=== PATIENT | female | born 1940 | race Caucasian/White ===

== ENCOUNTER → 2018-03-23 | Outpatient (CLI) | payer MEDICARE ==
[2018-03-23 12:16] LABS: Basophils # (A) 0.1 k/uL (0-0.2); Basophils % (A) 1 %; Eosinophils # (A) 0.1 k/uL (0-0.7); Eosinophils % (A) 2 %; HCT 41.6 % (34.0-46.0); HGB 14.1 gm/dL (11.4-16.0); Lymphocytes # (A) 1.8 k/uL (1.0-4.8); Lymphocytes % (A) 29 %; MCH 32.2 pg (25.0-35.0); MCHC 33.8 g/dL (31.0-37.0); MCV 95.2 fL (80.0-100.0); Mean Platelet Volume 6.6; Monocytes # (A) 0.4 k/uL (0-1.0); Monocytes % (A) 6 %; Neutrophils # (A) 3.7 k/uL (1.3-7.7); Neutrophils % (A) 58 %; Platelet Count 240 k/uL (150-450); RBC 4.37 m/uL (3.80-5.40); RDW 13.4 % (11.5-15.5); WBC 6.5 k/uL (3.8-10.6)
== END | disposition home or self-care (01) ==
LOC: LABPAT 11:15
PROVIDERS: ATTEND Surgery
DX: Z01.818 Encounter for other preprocedural examination (principal); Z01.812 Encounter for preprocedural laboratory examination; K43.2 Incisional hernia without obstruction or gangrene; D64.9 Anemia, unspecified; F17.200 Nicotine dependence, unspecified, uncomplicated
CPT/HCPCS: 36415; 85025; 86850; 86900; 86901; 93005

== ENCOUNTER 2018-03-29 06:33 | Day surgery (SDC) | payer MEDICARE ==
[2018-03-22 09:59] VITALS: BMI 42.1
[~2018-03-29 06:33] MED LIST: DEXAMETHASONE SOD PHOSPHATE 10 MG/ML 1 ML VIAL IV ONE; HEPARIN SODIUM,PORCINE 5,000 UNIT/ML 1 ML VIAL SQ ONE; HYDROmorphone 0.5 MG/0.5 ML SYRINGE IVP PRN; LACTATED RINGERS 1,000 ML IV SCH; LIDOCAINE 1% 20 ML VIAL (10MG/ML) FOR IV START INTRADERMA PRN; MIDAZOLAM 2 MG/2 ML VIAL IV PRN; SCOPOLAMINE 1.5MG/72HR PATCH TRANSDERM ONE; ceFAZolin IN SWFI 2 GM/20 ML SYRINGE IVP ONE
[2018-03-29] MEDS: ONDANSETRON 4 MG/2 ML VIAL IVP ONE ×2 (07:15→11:00)
--- NOTE | 2018-03-29 07:53 | P.GSHP ---
History of Present Illness H&P Date: 03/29/18 Chief Complaint: Incisional hernia 's is a 77-year-old female who is developed an incisional hernia at her low midline scar. Patient is incisional hernia near the umbilicus. She presents today for laparoscopic robotic-assisted repair. Past Medical History Past Medical History: Fibromyalgia, GERD/Reflux, Hyperlipidemia, Hypertension, Myocardial Infarction ([place]), Osteoarthritis (OA) Additional Past Medical History / Comment(s): SOB with exertion, hx Congestive Heart Failure. Last Myocardial Infarction Date:: 11/2016 History of Any Multi-Drug Resistant Organisms: None Reported Past Surgical History: Appendectomy, Bowel Resection, Hysterectomy, Tonsillectomy Additional Past Surgical History / Comment(s): Bilateral Cataract surgery. Past Anesthesia/Blood Transfusion Reactions: No Reported Reaction Past Psychological History: Anxiety Smoking Status: Former smoker Past Alcohol Use History: None Reported Additional Past Alcohol Use History / Comment(s): Quit smoking 11/2016, smoked on and off since 16 yrs old. Past Drug Use History: None Reported - Past Family History Mother Family Medical History: Cancer Additional Family Medical History / Comment(s): Breast and colon cancer Medications and Allergies Home Medications Medication Instructions Recorded Confirmed Type ALPRAZolam [Xanax] 0.5 mg PO BID 03/22/18 03/29/18 History Acetaminophen [Tylenol Arthritis] 650 mg PO Q4H PRN 03/22/18 03/29/18 History Allopurinol [Zyloprim] 100 mg PO DAILY 03/22/18 03/29/18 History Esomeprazole Magnesium [NexIUM] 20 mg PO DAILY 03/22/18 03/29/18 History Hydrochlorothiazide 25 mg PO QAM 03/22/18 03/29/18 History Losartan [Cozaar] 50 mg PO QAM 03/22/18 03/29/18 History Lovastatin [Mevacor] 20 mg PO HS 03/22/18 03/29/18 History Magnesium 400 mg PO DAILY 03/22/18 03/29/18 History Montelukast [Singulair] 10 mg PO HS 03/22/18 03/29/18 History Rescue Inhaler 1 - 2 puff INHALATION DIRECTED 03/22/18 03/29/18 History PRN Tramadol 1 tab PO Q6H PRN 03/22/18 03/29/18 History amLODIPine [Norvasc] 5 mg PO QAM 03/22/18 03/29/18 History Allergies Allergy/AdvReac Type Severity Reaction Status Date / Time Sulfa (Sulfonamide Allergy Rash/Hives Verified 03/29/18 06:55 Antibiotics) aspirin AdvReac upset Verified 03/29/18 06:55 stomach/acid reflux Surgical - Exam Vital Signs Temp Pulse Resp BP Pulse Ox 97 F L 77 16 183/93 96 03/29/18 07:00 03/29/18 07:00 03/29/18 07:00 03/29/18 07:00 03/29/18 07:00 - General well developed, no distress - Eyes PERRL - ENT normal pinna - Neck no masses - Respiratory normal expansion - Cardiovascular Rhythm: regular - Abdomen Incisional hernia 8 cm at the superior portion of her low midline scar Abdomen: soft, non tender Assessment and Plan Assessment: Incisional hernia. We'll perform laparoscopic robotic-assisted repair.
[2018-03-29] MEDS ORDERED: GLYCOPYRROLATE 0.2 MG/ML 2 ML VIAL ONE (07:59)
[2018-03-29] MEDS ORDERED: ROCURONIUM BROMIDE 10 MG/ML 10 ML VIAL IV ONE (07:59)
[2018-03-29] MEDS ORDERED: fentaNYL (PF) 50 MCG/ML 2 ML AMP ONE (07:59)
[2018-03-29] MEDS ORDERED: LIDOCAINE 1% INJ 10MG/ML (20 ML MDV) ONE (07:59)
[2018-03-29] MEDS ORDERED: PROPOFOL 10 MG/ML 20 ML VIAL IV ONE (07:59)
[2018-03-29] MEDS ORDERED: KETOROLAC 30 MG/ML 1 ML VIAL ONE (07:59)
[2018-03-29] MEDS ORDERED: SUCCINYLCHOLINE CHLORIDE 100 MG/5 ML SYR IV ONE (07:59)
[2018-03-29] MEDS ORDERED: NEOSTIGMINE 1 MG/ML 10 ML VIAL ONE ×2 (07:59)
[2018-03-29] MEDS ORDERED: HYDROmorphone (PF) 1 MG/ML ONE (07:59)
[2018-03-29] MEDS ORDERED: MIDAZOLAM 2 MG/2 ML VIAL ONE (07:59)
[2018-03-29] MEDS ORDERED: BUPIVACAIN-EPI 0.5%-1:200,000 30 ML VIAL SQ ONE ×2 (08:32)
[2018-03-29] MEDS ORDERED: LACTATED RINGERS 1,000 ML IV ONE (09:10)
--- NOTE | 2018-03-29 09:38 | P.ONQ ---
Anesthesiology Proc Note - PNB - Peripheral Nerve Block Performed Bilateral Rectus Abdominis Single Time Out Performed: Yes Procedure Start Time: 07:43 Procedure Stop Time: :53 Indication: Acute Post-Operative Pain, Requested by physician Sedation Type: Sedate with meaningful contact maintained Preparation: Sterile Prep Position: Supine Needle Size: 50mm (2") Needle Gauge: 21 Technique: Ultrasound Injectate: 0.5% Ropivacaine (see comment for volume) (ropi .5% 30cc) Blood Aspirated: No Pain Paresthesia on Injection Noted: No Resistance on Injection: Normal Events: Uneventful and Well Tolerated
--- NOTE | 2018-03-29 09:49 | P.OP ---
Date of Procedure: 03/29/18 Preoperative Diagnosis: Laparoscopic robotic-assisted repair of incisional hernia Postoperative Diagnosis: Incisional hernia Adhesions Procedure(s) Performed: Laparoscopic robotic repair of incisional hernia Laparoscopic lysis of adhesions Anesthesia: ROMÁN Surgeon: Kem Cruz Estimated Blood Loss (ml): 5 Pathology: none sent Condition: stable Disposition: PACU Description of Procedure: The patient was placed on the operating table in the supine position. He received general anesthesia. His abdomen was prepped and draped usual fashion. Using a 5 mm optical trocar under direct visualization the peritoneal cavity was entered in the left upper quadrant. The abdomen was then insufflated. The laparoscope was placed back into the perineal cavity. Next a 8 mm robotic trocar was placed in the left lower quadrant and a 12 mm robotic trocar was placed in the left lateral position. The original 5 mm trocar was exchanged for a 8 mm robotic trocar. The patient's placed in the left side up position. And the patient was docked to the robot. There were adhesions located over the low midline incision. Using electrocautery these were taken down. The The incisional hernia was visualized. Using hook cautery the peritoneum over the incisional hernia was excised. The fascial opening was repaired using 0V LOC suture. Next a piece of 11 cm round ventral light ST mesh was placed into the. Cavity and secured with 2 OV lock suture. The patient was undocked the robot. The needles were retrieved. The fascia of the 12 mm trocar site was closed with 0 Ethibond suture. Skin was closed interrupted 3-0 Monocryl suture. Dermabond dressings was applied. Patient tolerated procedure well and was sent to recovery room stable condition.
[2018-03-29 09:58] VITALS: TEMP 97.8
[2018-03-29] MEDS ORDERED: ENALAPRILAT 1.25 MG/ML 1 ML VIAL IVP ONE (10:14)
[2018-03-29] MEDS ORDERED: HYDROcodone/APAP 7.5-325MG 1 EACH TAB PO ONE (13:40)
[2018-03-29] MEDS ORDERED: METOCLOPRAMIDE 5 MG/ML 2 ML VIAL IVP ONE (13:40)
[2018-03-29 14:56] VITALS: BP 131/61; PULSE 57; RESP 18
== END 2018-03-29 15:31 | disposition home or self-care (01) ==
LOC: OR 06:33
PROVIDERS: ATTEND Surgery
DX: K43.2 Incisional hernia without obstruction or gangrene (principal); K66.0 Peritoneal adhesions (postprocedural) (postinfection); M79.7 Fibromyalgia; K21.9 Gastro-esophageal reflux disease without esophagitis; E78.5 Hyperlipidemia, unspecified; I25.2 Old myocardial infarction; M19.90 Unspecified osteoarthritis, unspecified site; I11.0 Hypertensive heart disease with heart failure; I50.9 Heart failure, unspecified; F41.9 Anxiety disorder, unspecified; J45.909 Unspecified asthma, uncomplicated; M10.9 Gout, unspecified; E66.9 Obesity, unspecified; Z68.41 Body mass index [BMI] 40.0-44.9, adult; Z90.49 Acquired absence of other specified parts of digestive tract; Z90.710 Acquired absence of both cervix and uterus; Z79.899 Other long term (current) drug therapy; Z88.2 Allergy status to sulfonamides; Z88.6 Allergy status to analgesic agent; Z87.891 Personal history of nicotine dependence
CPT/HCPCS: 49654; 64488; C1781; J2250; J1644; J1100; J2710; J2765; J2405; J2001; J3010; J1885; J1170 ×2; J0330; J2704; J0690; 86850; 86900; 86901

== ENCOUNTER 2020-07-31 09:11 | Day surgery (SDC) | payer MEDICARE ==
[2020-07-31 10:40] VITALS: RESP 18; TEMP 97.7
[2020-07-31 11:29] VITALS: BP 159/88; PULSE 65
--- NOTE | 2020-07-31 16:47 | US ---
EXAMINATION TYPE: US FNA thyroid first lesion DATE OF EXAM: 07/31/2020 COMPARISON: NONE HISTORY: Thyroid nodules .Maximal barrier technique was utilized. After informed consent, skin overlying the site of thyroid nodule at the lower pole was localized with ultrasound and the overlying skin prepped and draped. Ult rasound was utilized using sterile technique. Lidocaine was used for local anesthesia. Five passes w ith a 25-gauge needle were made into the nodule and aspirated specimen was submitted to cytology. Using similar technique the dominant nodule in the right lobe of the gland was sampled with 5 passes with a 25-gauge needle under ultrasound guidance. Following the procedure hemostasis achieved. No immediate complication. The patient discharged in s table condition. IMPRESSION: STATUS POST ULTRASOUND GUIDED FINE NEEDLE ASPIRATION OF THYROID NODULES bilaterally, PATH OLOGY IS PENDING. THIS PROCEDURE WAS PERFORMED BY THE UNDERSIGNED.
== END 2020-07-31 11:20 | disposition home or self-care (01) ==
LOC: RADPROMAIN 09:11
PROVIDERS: ATTEND Nurse Practitioner Adult Health
DX: E04.9 Nontoxic goiter, unspecified (principal); E04.1 Nontoxic single thyroid nodule
CPT/HCPCS: 10005; 10006; 88173; 88305

== ENCOUNTER 2020-09-11 18:29 | Observation (INO) | payer MEDICARE ==
--- NOTE | 2020-09-11 19:00 | ED ---
General Adult HPI - General Chief complaint: Shortness of Breath Stated complaint: Chest Pain Time Seen by Provider: 09/11/20 18:43 Source: patient Mode of arrival: EMS Limitations: no limitations - History of Present Illness Initial comments: Dictation was produced using [employer] dictation software. please excuse any grammatical, word or spelling errors. This patient was cared for during a federal and state declared state of emergency secondary to Covid 19 Chief Complaint: 80-year-old female with alleged past medical history of heart failure, fiber large, hypertension presents to emergency department for NSTEMI. History of Present Illness: She is 80-year-old female she has past medical history of cardiac disease. Patient was initially evaluated at [place] for shortness of breath. She states that her symptoms have been ongoing for a couple days. She was seen there and was evaluated found have elevated troponin of 0.04. She had a negative d-dimer. Patient states she feels well at the moment. She states she feels kind of fatigued because she did not sleep last night. She does not have any chest pain. She is not short of breath currently. He did have some mild chest pain recently although it went away on its own. Patient states she has a history of heart failure. The ROS documented in this emergency department record has been reviewed and confirmed by me. Those systems with pertinent positive or negative responses have been documented in the HPI. All other systems are other negative and/or noncontributory. PHYSICAL EXAM: General Impression: Alert and oriented x3, not in acute distress HEENT: Normocephalic atraumatic, extra-ocular movements intact, pupils equal and reactive to light bilaterally, mucous membranes moist. Cardiovascular: Heart regular rate and rhythm Chest: Able to complete full sentences, no retractions, no tachypnea Abdomen: abdomen soft, non-tender, non-distended, no organomegaly Musculoskeletal: Pulses present and equal in all extremities, no peripheral edema Motor: no focal deficits noted Neurological: CN II-XII grossly intact, no focal motor or sensory deficits noted Skin: Intact with no visualized rashes Psych: Normal affect and mood ED course: 80-year-old well-appearing female with past medical history of cardiac disease presents to emergency department via transfer from [place] for elevated troponin. Vital signs upon arrival are within acceptable limits. Patient be admitted to observation. Repeat troponin is negative. Patient will be admitted to [facility] prescription. - Related Data Home Medications Medication Instructions Recorded Confirmed ALPRAZolam [Xanax] 0.5 mg PO BID 03/22/18 09/11/20 Acetaminophen [Tylenol Arthritis] 650 mg PO Q4H PRN 03/22/18 09/11/20 Esomeprazole Magnesium [NexIUM] 20 mg PO DAILY 03/22/18 09/11/20 Lovastatin [Mevacor] 20 mg PO HS 03/22/18 09/11/20 Montelukast [Singulair] 10 mg PO HS 03/22/18 09/11/20 allopurinoL [Zyloprim] 100 mg PO DAILY 03/22/18 09/11/20 amLODIPine [Norvasc] 5 mg PO QAM 03/22/18 09/11/20 hydroCHLOROthiazide 25 mg PO QAM 03/22/18 09/11/20 Escitalopram Oxalate [Lexapro] 20 mg PO DAILY 07/21/20 09/11/20 Albuterol Sulfate [Ventolin HFA] 2 puff INHALATION RT-Q6H PRN 09/11/20 09/11/20 Losartan Potassium [Cozaar] 50 mg PO DAILY 09/11/20 09/11/20 traMADol HCL 50 mg PO BID PRN 09/11/20 09/11/20 Allergies Allergy/AdvReac Type Severity Reaction Status Date / Time Sulfa (Sulfonamide Allergy Rash/Hives, Verified 09/11/20 20:10 Antibiotics) ITCHING aspirin AdvReac upset Verified 09/11/20 20:10 stomach/acid reflux Review of Systems ROS Statement: Those systems with pertinent positive or pertinent negative responses have been documented in the HPI. ROS Other: All systems not noted in ROS Statement are negative. Past Medical History Past Medical History: Fibromyalgia, GERD/Reflux, Hyperlipidemia, Hypertension, Myocardial Infarction ([place]), Osteoarthritis (OA) Additional Past Medical History / Comment(s): SOB with exertion, hx Congestive Heart Failure. Last Myocardial Infarction Date:: 11/2016 History of Any Multi-Drug Resistant Organisms: None Reported Past Surgical History: Appendectomy, Bowel Resection, Hysterectomy, Tonsillectomy Additional Past Surgical History / Comment(s): Bilateral Cataract surgery. Past Anesthesia/Blood Transfusion Reactions: No Reported Reaction Past Psychological History: Anxiety Smoking Status: Unknown if ever smoked Past Alcohol Use History: None Reported Past Drug Use History: None Reported - Past Family History Mother Family Medical History: Cancer Additional Family Medical History / Comment(s): Breast and colon cancer General Exam Limitations: no limitations Course Vital Signs 09/11/20 18:43 Pulse Rate 68 Respiratory 20 Rate Blood Pressure 173/79 O2 Sat by Pulse 99 Oximetry Medical Decision Making - Lab Data Lab Results 09/11/20 Range/Units 19:20 Troponin I <0.012 (0.000-0.034) ng/mL Disposition Clinical Impression: NSTEMI (non-ST elevated myocardial infarction) Disposition: ADMITTED IP TO THIS HOSP Condition: Fair Referrals: Nonstaff,Physician [Primary Care Provider] - 1-2 days Decision Time: 20:18
[2020-09-11] MEDS ORDERED: NITROGLYCERIN SL TABS 0.4 MG TAB SUBLINGUAL PRN (20:16)
[2020-09-11] MEDS ORDERED: HEPARIN SOD,PORK IN 0.45% NACL 25,000 UNIT in 0.45% NACL 1 250ML.BAG IV SCH (20:30)
[2020-09-11] MEDS ORDERED: ACETAMINOPHEN TAB 325 MG TAB PO PRN (22:21)
[2020-09-11] MEDS ORDERED: traMADol 50 MG TAB PO PRN (22:21)
[2020-09-11] MEDS: ATORVASTATIN 10 MG TAB PO SCH (22:36)
[2020-09-11] MEDS: ESCITALOPRAM 20 MG TAB PO SCH (22:36)
[2020-09-11] MEDS: PANTOPRAZOLE 40 MG TABLET PO SCH (22:36)
[2020-09-11] MEDS: ALPRAZolam 0.5 MG TAB PO SCH (22:36)
[2020-09-12] MEDS: ALBUTEROL HFA INHALER INHALATION PRN ×2 (07:51→12:25)
[2020-09-12] MEDS: allopurinoL 100 MG TAB PO SCH (08:20)
[2020-09-12] MEDS: ALPRAZolam 0.5 MG TAB PO SCH ×2 (08:22→20:37)
[2020-09-12] MEDS: LOSARTAN 25 MG TAB PO SCH (08:23)
[2020-09-12] MEDS: PANTOPRAZOLE 40 MG TABLET PO SCH (08:23)
[2020-09-12] MEDS: amLODIPine 5 MG TAB PO SCH (08:23)
[2020-09-12] MEDS: ESCITALOPRAM 20 MG TAB PO SCH (08:26)
[2020-09-12 08:54] LABS: Cholesterol 157 mg/dL (<200); HDL Cholesterol 50 mg/dL (40-60); LDL Cholesterol,Calculated 72 mg/dL (0-99); Triglycerides 173 mg/dL (<150)
[2020-09-12] MEDS ORDERED: ASPIRIN 81 MG PO SCH (09:00)
[2020-09-12] MEDS ORDERED: hydroCHLOROthiazide 25 MG TAB PO SCH (09:00)
[2020-09-12] MEDS ORDERED: ASPIRIN 325 MG TAB PO SCH (09:00)
[2020-09-12 09:17] LABS: Basophils # (A) 0.1 k/uL (0-0.2); Basophils % (A) 1 %; Eosinophils # (A) 0.1 k/uL (0-0.7); Eosinophils % (A) 1 %; HCT 38.1 % (34.0-46.0); HGB 12.9 gm/dL (11.4-16.0); Lymphocytes # (A) 2.5 k/uL (1.0-4.8); Lymphocytes % (A) 37 %; MCH 32.5 pg (25.0-35.0); MCHC 33.9 g/dL (31.0-37.0); MCV 95.9 fL (80.0-100.0); Mean Platelet Volume 7.2; Monocytes # (A) 0.4 k/uL (0-1.0); Monocytes % (A) 6 %; Neutrophils # (A) 3.6 k/uL (1.3-7.7); Neutrophils % (A) 53 %; Platelet Count 229 k/uL (150-450); RBC 3.97 m/uL (3.80-5.40); RDW 13.5 % (11.5-15.5); WBC 6.7 k/uL (3.8-10.6)
[2020-09-12 09:18] LABS: Calcium 10.6 mg/dL (8.4-10.2); Potassium 3.9 mmol/L (3.5-5.1)
--- NOTE | 2020-09-12 11:08 | XR ---
EXAMINATION TYPE: XR chest 1V DATE OF EXAM: 09/12/2020 COMPARISON: Chest x-ray 09/11/2020 from outside institution HISTORY: Congestive heart failure TECHNIQUE: Single frontal view of the chest is obtained. FINDINGS: Technique is apical lordotic. Retrocardiac density with some central lucency is present. Th ere are overlying artifacts. There is no focal air space opacity, pleural effusion, or pneumothorax s een. The cardiac silhouette size is stable. Aorta is dense. The osseous structures are intact, poss ible underlying spinal curvature. IMPRESSION: Hiatal hernia with intrathoracic stomach is suspected. Heart size may be accentuated by technique, consider follow-up PA and lateral chest x-ray when stable.
--- NOTE | 2020-09-12 11:54 | P.HPIM ---
History of Present Illness 71-year-old female the presented to [facility] with complaints of shortness of breath. Patient has mildly elevated the troponin is 0.04 because of which patient is believed to have non-ST elevation microinfarction was transferred here and cardiology was consulted. Patient EKG did not show any acute ST-T wave changes patient to d-dimer is not elevated. Patient denied any short of breath and chest pain at this time. Patient the chest x-ray did not show any significant abnormality patient had any orthopnea or paroxysmal nocturnal dyspnea. Unsure why patient was short of breath patient is presently on 2 L of oxygen saturating at 93% no wheezing on exam. I repeated the chest x-ray again which showed hiatal hernia and intrathoracic stomach. has elevated creatinine of 1.6 I do not have her baseline available at this time. Echocardiogram is being obtained. Review of Systems REVIEW OF SYSTEMS: CONSTITUTIONAL: No fever, no malaise, no fatigue. HEENT: No recent visual problems or hearing problems. Denied any sore throat. CARDIOVASCULAR: No chest pain, orthopnea, PND, no palpitations, no syncope. PULMONARY: no cough, no hemoptysis. GASTROINTESTINAL: No diarrhea, no nausea, no vomiting, no abdominal pain. NEUROLOGICAL: No headaches, no weakness, no numbness. HEMATOLOGICAL: Denies any bleeding or petechiae. GENITOURINARY: Denies any burning micturition, frequency, or urgency. MUSCULOSKELETAL/RHEUMATOLOGICAL: Denies any joint pain, swelling, or any muscle pain. ENDOCRINE: Denies any polyuria or polydipsia. The rest of the 14-point review of systems is negative. Past Medical History Past Medical History: Fibromyalgia, GERD/Reflux, Hyperlipidemia, Hypertension, Myocardial Infarction ([place]), Osteoarthritis (OA) Additional Past Medical History / Comment(s): SOB with exertion, hx Congestive Heart Failure. Last Myocardial Infarction Date:: 11/2016 History of Any Multi-Drug Resistant Organisms: None Reported Past Surgical History: Appendectomy, Bowel Resection, Hysterectomy, Tonsillectomy Additional Past Surgical History / Comment(s): Bilateral Cataract surgery. Past Anesthesia/Blood Transfusion Reactions: No Reported Reaction Past Psychological History: Anxiety Smoking Status: Unknown if ever smoked Past Alcohol Use History: None Reported Additional Past Alcohol Use History / Comment(s): Quit smoking 11/2016, smoked on and off since 16 yrs old. Past Drug Use History: None Reported - Past Family History Mother Family Medical History: Cancer Additional Family Medical History / Comment(s): Breast and colon cancer Medications and Allergies Home Medications Medication Instructions Recorded Confirmed Type ALPRAZolam [Xanax] 0.5 mg PO BID 03/22/18 09/11/20 History Acetaminophen [Tylenol Arthritis] 650 mg PO Q4H PRN 03/22/18 09/11/20 History Esomeprazole Magnesium [NexIUM] 20 mg PO DAILY 03/22/18 09/11/20 History Lovastatin [Mevacor] 20 mg PO HS 03/22/18 09/11/20 History Montelukast [Singulair] 10 mg PO HS 03/22/18 09/11/20 History allopurinoL [Zyloprim] 100 mg PO DAILY 03/22/18 09/11/20 History amLODIPine [Norvasc] 5 mg PO QAM 03/22/18 09/11/20 History hydroCHLOROthiazide 25 mg PO QAM 03/22/18 09/11/20 History Escitalopram Oxalate [Lexapro] 20 mg PO DAILY 07/21/20 09/11/20 History Albuterol Sulfate [Ventolin HFA] 2 puff INHALATION RT-Q6H PRN 09/11/20 09/11/20 History Losartan Potassium [Cozaar] 50 mg PO DAILY 09/11/20 09/11/20 History traMADol HCL 50 mg PO BID PRN 09/11/20 09/11/20 History Allergies Allergy/AdvReac Type Severity Reaction Status Date / Time Sulfa (Sulfonamide Allergy Rash/Hives, Verified 09/11/20 20:10 Antibiotics) ITCHING aspirin AdvReac upset Verified 09/11/20 20:10 stomach/acid reflux Physical Exam Vitals: Vital Signs Temp Pulse Pulse Resp BP BP Pulse Ox 09/12/20 08:20 98 F 60 18 132/69 93 L 09/12/20 04:00 98.6 F 58 L 17 135/65 96 09/12/20 00:00 98.1 F 80 18 138/75 95 09/11/20 20:58 98.1 F 64 18 145/85 96 09/11/20 20:33 66 16 191/71 98 09/11/20 18:43 68 20 173/79 99 Intake and Output 0109/12/20 09/12/20 22:59 06:59 14:59 Intake Total 400 53.365 Output Total 500 Balance 400 -446.635 Intake: Intake, IV Titration 53.365 Amount Heparin Sod,Pork in 0.45% 53.365 NaCl 25,000 unit In 0.45 % NaCl 1 250ml.bag @ 9.23 UNITS/KG/HR 10.006 mls/ hr IV .Q24H [facility] Rx#: [id number] Oral 400 Output: Urine 500 Other: # Voids 1 Weight 108.409 kg 106.3 kg PHYSICAL EXAMINATION: GENERAL: The patient is alert and oriented x3, not in any acute distress. Well developed, well nourished. HEENT: Pupils are round and equally reacting to light. EOMI. No scleral icterus. No conjunctival pallor. Normocephalic, atraumatic. No pharyngeal erythema. No thyromegaly. CARDIOVASCULAR: S1 and S2 present. No murmurs, rubs, or gallops. PULMONARY: Chest is clear to auscultation, no wheezing or crackles. ABDOMEN: Soft, nontender, nondistended, normoactive bowel sounds. No palpable organomegaly. MUSCULOSKELETAL: No joint swelling or deformity. EXTREMITIES: No cyanosis, clubbing, or pedal edema. NEUROLOGICAL: Gross neurological examination did not reveal any focal deficits. SKIN: No rashes. Results CBC & Chem 7: 09/12/20 07:52 09/12/20 07:52 Labs: Abnormal Lab Results - Last 24 Hours (Table) 09/12/20 09/12/20 09/12/20 Range/Units 01:12 07:52 07:52 APTT 30.6 H 45.5 H (22.0-30.0) sec Carbon Dioxide (22-30) mmol/L BUN (7-17) mg/dL Creatinine (0.52-1.04) mg/dL Glucose (74-99) mg/dL Calcium (8.4-10.2) mg/dL Triglycerides 173 H (<150) mg/dL 09/12/20 Range/Units 07:52 APTT (22.0-30.0) sec Carbon Dioxide 21 L (22-30) mmol/L BUN 26 H (7-17) mg/dL Creatinine 1.65 H (0.52-1.04) mg/dL Glucose 114 H (74-99) mg/dL Calcium 10.6 H (8.4-10.2) mg/dL Triglycerides (<150) mg/dL Thrombosis Risk Factor Assmnt - Choose All That Apply Any of the Below Risk Factors Present?: Yes Each Factor Represents 1 point: Acute OK Other Risk Factors: Yes Each Risk Factor Represents 3 Points: Age 75 years or older Other congenital or acquired thrombophilia - If yes, enter type in comment: No Thrombosis Risk Factor Assessment Total Risk Factor Score: 4 Thrombosis Risk Factor Assessment Level: Moderate Risk Assessment and Plan Plan: -Shortness of breath etiology is not clear clinically patient doesn't appear to be in CHF, acute coronary syndromes are being considered I do not believe patient has non-ST elevation microinfarction although I cannot completely rule out unstable angina cardiology will evaluate the patient rule out PE with the d- dimer which was negative. Patient doesn't have any pneumonia. Patient has an interest some thoracic stomach and hiatal hernia may be contributing to her shortness of breath considering her age. -Possible chronic kidney disease stage III we'll repeat basic metabolic profile again tomorrow -Gastroesophageal reflux disease -Hypertension -Hyperlipidemia -History of coronary artery disease -Anxiety disorder.
--- NOTE | 2020-09-12 14:00 | ECHOF ---
Referral Reason:SOB, LV function MEASUREMENTS -------- HEIGHT: 154.9 cm WEIGHT: 106.1 kg BP: 132/69 IVSd: 1.2 cm (0.6 - 1.1) LVIDd: 3.0 cm (3.9 - 5.3) LVPWd: 1.5 cm (0.6 - 1.1) IVSs: 1.5 cm LVIDs: 1.3 cm LVPWs: 1.2 cm LAESV Index (A-L): 40.77 ml/m Ao Diam: 3.2 cm (2.0 - 3.7) AV Cusp: 1.6 cm (1.5 - 2.6) LA Diam: 3.2 cm (2.7 - 3.8) MV EXCURSION: 12.842 mm (> 18.000) MV EF SLOPE: 34 mm/s (70 - 150) EPSS: 0.3 cm MV E Yinka: 1.00 m/s MV DecT: 341 ms MV A Yinka: 1.26 m/s MV E/A Ratio: 0.80 AV maxP.63 mmHg AV meanP.17 mmHg AR PHT: 1265 ms RAP: 5.00 mmHg RVSP: 22.52 mmHg FINDINGS -------- This was a technically adequate study. The left ventricular size is normal. There is mild concentric left ventricular hypertrophy. Overa ll left ventricular systolic function is normal with, an EF between 55 - 60 %. Increased LAP Grade 2 Diastolic Dysfunction. The right ventricle is normal in size. LA is severely dilated >40 ml/m2 The right atrial size is normal. Aortic valve is trileaflet and is mildly thickened. There is mild aortic regurgitation. There is mild aortic stenosis present. Peak/mean gradient across the Aortic Valve is 24.63mmHg / 15.17mmHg. The mitral valve is normal. The mitral valve leaflets are mildly thickened. Mild mitral regurgita tion is present. The tricuspid valve appears structurally normal. Mild tricuspid regurgitation present. Right vent ricular systolic pressure is normal at < 35 mmHg. There is no pulmonic regurgitation present. The aortic root size is normal. IVC Not well visulized. There is no pericardial effusion. CONCLUSIONS -------- 1. The left ventricular size is normal. 2. There is mild concentric left ventricular hypertrophy. 3. Overall left ventricular systolic function is normal with, an EF between 55 - 60 %. 4. Increased LAP Grade 2 Diastolic Dysfunction. 5. LA is severely dilated >40 ml/m2 6. Aortic valve is trileaflet and is mildly thickened. 7. There is mild aortic regurgitation. 8. There is mild aortic stenosis present. 9. Peak/mean gradient across the Aortic Valve is 24.63mmHg / 15.17mmHg. 10. The mitral valve leaflets are mildly thickened. 11. Mild mitral regurgitation is present. 12. Mild tricuspid regurgitation present. 13. The aortic root size is normal. 14. There is no pericardial effusion. ANDROID DEVELOPER: Luz Snyder RDCS
--- NOTE | 2020-09-12 14:07 | P.CRDCN ---
History of Present Illness Consult date: 09/12/20 History of present illness: CHIEF COMPLAINT: Shortness of breath HISTORY OF PRESENT ILLNESS: This is a 80-year-old female with a past medical history significant for hypertension, aortic stenosis, hyperlipidemia, and congestive heart failure. Patient follows in the office with Dr. Sena. We have been asked to see the patient in consultation for shortness of breath. Patient was transferred from [facility] after being evaluated for shortness of breath. She was found to have a troponin of 0.04 and was subsequently transferred here. The patient denies any chest pain or pressure. She states she has been feeling short of breath since Tuesday. The patient reports a history of congestive heart failure and states she takes hydrochlorothiazide at home. She states her shortness of breath has improved this morning. DIAGNOSTICS: EKG reveals sinus mechanism with no signs of acute ischemia Chest xray hiatal hernia with intrathoracic stomach is suspected Laboratory data: CBC 6.7. Hemoglobin 12.9. Platelet count 229. Sodium 139. Potassium 3.9. BUN 26. Creatinine 1.65. Troponin negative 3. BNP 830. Current home cardiac medications include HCTZ 25 mg daily, lovastatin 20 mg isabelle y, losartan 59 g daily, Norvasc 5 mg daily Echocardiogram completed in 2013 revealing ejection fraction greater then 65% REVIEW OF SYSTEMS: At the time of my exam: CONSTITUTIONAL: Denies fever or chills. HEENT: Denies blurred vision, vision changes, or eye pain. Denies hemoptysis CARDIOVASCULAR: Denies chest pain, orthopnea, PND or palpitations RESPIRATORY: No shortness of breath. GASTROINTESTINAL: Denies abdominal pain. Denies nausea or vomiting. HEMATOLOGIC: Denies bleeding disorders. GENITOURINARY: Denies any blood in urine. SKIN: Denies pruitis. Denies rash. PHYSICAL EXAM: VITAL SIGNS: Reviewed. GENERAL: Well-developed in no acute distress. HEENT: Head is normocephalic. Pupils are equal, round. Sclerae anicteric. Mucous membranes of the mouth are moist. Neck supple. No JVD or thyromegaly LUNGS: Respirations even and unlabored. Lungs diminished bilaterally. HEART: Regular rate and rhythm. S1 and S2 heard. Systolic murmur noted ABDOMEN: Soft. Nondistended. Nontender. EXTREMITIES: Normal range of motion. No clubbing or cyanosis. Peripheral pulses intact. No lower extremity edema NEUROLOGIC: Awake and alert. Oriented x 3. ASSESSMENT: NSTEMI, ruled out, troponin negative x 3 Shortness of breath, etiology unclear Chronic diastolic congestive heart failure, currently euvolemic, BNP 830 Aortic stenosis Hypertension Hyperlipidemia Acute kidney injury, baseline unknown PLAN: An acute coronary event has been ruled out Obtain 2-D echo to assess cardiac structure and function Discontinue aspirin Discontinue IV heparin HCTZ held due to REBEKAH per internal medicine Continue Cozaar. Monitor kidney function Further recommendations pending patient course Nurse practitioner note has been reviewed by physician. Signing provider agrees with the documented findings, assessment, and plan of care. Past Medical History Past Medical History: Fibromyalgia, GERD/Reflux, Hyperlipidemia, Hypertension, Myocardial Infarction (LA), Osteoarthritis (OA) Additional Past Medical History / Comment(s): SOB with exertion, hx Congestive Heart Failure. Last Myocardial Infarction Date:: 11/2016 History of Any Multi-Drug Resistant Organisms: None Reported Past Surgical History: Appendectomy, Bowel Resection, Hysterectomy, Tonsillectom y Additional Past Surgical History / Comment(s): Bilateral Cataract surgery. Past Anesthesia/Blood Transfusion Reactions: No Reported Reaction Past Psychological History: Anxiety Smoking Status: Unknown if ever smoked Past Alcohol Use History: None Reported Additional Past Alcohol Use History / Comment(s): Quit smoking 11/2016, smoked on and off since 16 yrs old. Past Drug Use History: None Reported - Past Family History Mother Family Medical History: Cancer Additional Family Medical History / Comment(s): Breast and colon cancer Medications and Allergies Home Medications Medication Instructions Recorded Confirmed Type ALPRAZolam [Xanax] 0.5 mg PO BID 03/22/18 09/11/20 History Acetaminophen [Tylenol Arthritis] 650 mg PO Q4H PRN 03/22/18 09/11/20 History Esomeprazole Magnesium [NexIUM] 20 mg PO DAILY 03/22/18 09/11/20 History Lovastatin [Mevacor] 20 mg PO HS 03/22/18 09/11/20 History Montelukast [Singulair] 10 mg PO HS 03/22/18 09/11/20 History allopurinoL [Zyloprim] 100 mg PO DAILY 03/22/18 09/11/20 History amLODIPine [Norvasc] 5 mg PO QAM 03/22/18 09/11/20 History hydroCHLOROthiazide 25 mg PO QAM 03/22/18 09/11/20 History Escitalopram Oxalate [Lexapro] 20 mg PO DAILY 07/21/20 09/11/20 History Albuterol Sulfate [Ventolin HFA] 2 puff INHALATION RT-Q6H PRN 09/11/20 09/11/20 History Losartan Potassium [Cozaar] 50 mg PO DAILY 09/11/20 09/11/20 History traMADol HCL 50 mg PO BID PRN 09/11/20 09/11/20 History Allergies Allergy/AdvReac Type Severity Reaction Status Date / Time Sulfa (Sulfonamide Allergy Rash/Hives, Verified 09/11/20 20:10 Antibiotics) ITCHING aspirin AdvReac upset Verified 09/11/20 20:10 stomach/acid reflux Physical Exam Vitals: Vital Signs Temp Pulse Pulse Resp BP BP Pulse Ox 09/12/20 13:06 18 09/12/20 11:48 98.3 F 63 18 128/70 95 09/12/20 08:20 98 F 60 18 132/69 93 L 09/12/20 04:00 98.6 F 58 L 17 135/65 96 09/12/20 00:00 98.1 F 80 18 138/75 95 09/11/20 20:58 98.1 F 64 18 145/85 96 09/11/20 20:33 66 16 191/71 98 09/11/20 18:43 68 20 173/79 99 Intake and Output 09/11/20 09/12/20 09/12/20 22:59 06:59 14:59 Intake Total 400 53.365 Output Total 500 Balance 400 -446.635 Intake: Intake, IV Titration 53.365 Amount Heparin Sod,Pork in 0.45% 53.365 NaCl 25,000 unit In 0.45 % NaCl 1 250ml.bag @ 9.23 UNITS/KG/HR 10.006 mls/ hr IV .Q24H [facility] Rx#: [id number] Oral 400 Output: Urine 500 Other: # Voids 1 Weight 108.409 kg 106.3 kg Results 09/12/20 07:52 09/12/20 07:52 Cardiac Enzymes 09/11/20 09/11/20 09/12/20 Range/Units 19:20 21:40 01:12 Troponin I <0.012 <0.012 <0.012 (0.000-0.034) ng/mL Coagulation 09/12/20 09/12/20 Range/Units 01:12 07:52 APTT 30.6 H 45.5 H (22.0-30.0) sec Lipids 09/12/20 Range/Units 07:52 Triglycerides 173 H (<150) mg/dL Cholesterol 157 (<200) mg/dL HDL Cholesterol 50 (40-60) mg/dL CBC 09/12/20 Range/Units 07:52 WBC 6.7 (3.8-10.6) k/uL RBC 3.97 (3.80-5.40) m/uL Hgb 12.9 (11.4-16.0) gm/dL Hct 38.1 (34.0-46.0) % Plt Count 229 (150-450) k/uL Comprehensive Metabolic Panel 09/12/20 Range/Units 07:52 Sodium 139 (137-145) mmol/L Potassium 3.9 (3.5-5.1) mmol/L Chloride 107 (98-107) mmol/L Carbon Dioxide 21 L (22-30) mmol/L BUN 26 H (7-17) mg/dL Creatinine 1.65 H (0.52-1.04) mg/dL Glucose 114 H (74-99) mg/dL Calcium 10.6 H (8.4-10.2) mg/dL Current Medications Generic Name Dose Route Start Last Admin Trade Name Freq PRN Reason Stop Dose Admin Acetaminophen 650 mg 09/11/20 22:21 Acetaminophen Tab 325 Mg Tab PO Q4H PRN Pain Albuterol Sulfate 2 puff 09/11/20 22:21 09/12/20 12:25 Albuterol Hfa Inhaler INHALATION 2 puff RT-Q6H PRN Administration Shortness Of Breath Allopurinol 100 mg 09/12/20 09:00 09/12/20 08:20 Allopurinol 100 Mg Tab PO 100 mg DAILY MARCIAL Administration Alprazolam 0.5 mg 09/11/20 22:30 09/12/20 08:22 Alprazolam 0.5 Mg Tab PO 0.5 mg BID MARCIAL Administration Amlodipine Besylate 5 mg 09/12/20 09:00 09/12/20 08:23 Amlodipine 5 Mg Tab PO 5 mg QAM MARCIAL Administration Aspirin 81 mg 09/12/20 09:00 09/12/20 09:23 Aspirin 81 Mg PO Not Given DAILY MARCIAL Atorvastatin Calcium 10 mg 09/11/20 22:30 09/11/20 22:36 Atorvastatin 10 Mg Tab PO 10 mg HS MARCIAL Administration Escitalopram Oxalate 20 mg 09/11/20 22:30 09/12/20 08:26 Escitalopram 20 Mg Tab PO Not Given DAILY [facility] Losartan Potassium 50 mg 09/12/20 09:00 09/12/20 08:23 Losartan 25 Mg Tab PO 50 mg DAILY MARCIAL Administration Montelukast Sodium 10 mg 09/12/20 21:00 Montelukast 10 Mg Tab PO HS [facility] Nitroglycerin 0.4 mg 09/11/20 20:16 Nitroglycerin Sl Tabs 0.4 Mg Tab SUBLINGUAL Q5M PRN Chest Pain Pantoprazole Sodium 40 mg 09/11/20 22:30 09/12/20 08:23 Pantoprazole 40 Mg Tablet PO 40 mg DAILY MARCIAL Administration Tramadol HCl 50 mg 09/11/20 22:21 Tramadol 50 Mg Tab PO BID PRN Pain Intake and Output 09/11/20 09/12/20 09/12/20 22:59 06:59 14:59 Intake Total 400 53.365 Output Total 500 Balance 400 -446.635 Intake: Intake, IV Titration 53.365 Amount Heparin Sod,Pork in 0.45% 53.365 NaCl 25,000 unit In 0.45 % NaCl 1 250ml.bag @ 9.23 UNITS/KG/HR 10.006 mls/ hr IV .Q24H [facility] Rx#: [id number] Oral 400 Output: Urine 500 Other: # Voids 1 Weight 108.409 kg 106.3 kg 09/12/20 07:52 09/12/20 07:52
[2020-09-12] MEDS: ATORVASTATIN 10 MG TAB PO SCH (20:37)
[2020-09-12] MEDS ORDERED: MONTELUKAST 10 MG TAB PO SCH (21:00)
[2020-09-13 08:34] VITALS: RESP 20
[2020-09-13] MEDS: PANTOPRAZOLE 40 MG TABLET PO SCH (08:39)
[2020-09-13] MEDS: LOSARTAN 25 MG TAB PO SCH (08:39)
[2020-09-13] MEDS: ALPRAZolam 0.5 MG TAB PO SCH (08:39)
[2020-09-13] MEDS: ESCITALOPRAM 20 MG TAB PO SCH (08:40)
[2020-09-13] MEDS: amLODIPine 5 MG TAB PO SCH (08:40)
[2020-09-13] MEDS: allopurinoL 100 MG TAB PO SCH (08:40)
--- NOTE | 2020-09-13 10:06 | P.PN ---
Subjective 71-year-old female [place] complaints of shortness of breath. Patient has mildly elevated the troponin is 0.04 because of which patient is believed to have non-ST elevation microinfarction was transferred here and cardiology was consulted. Patient EKG did not show any acute ST-T wave changes patient to d-dimer is not elevated. Patient denied any short of breath and chest pain at this time. Patient the chest x-ray did not show any significant abnormality patient had any orthopnea or paroxysmal nocturnal dyspnea. Unsure why patient was short of breath patient is presently on 2 L of oxygen saturating at 93% no wheezing on exam. I repeated the chest x-ray again which showed hiatal hernia and intrathoracic stomach. has elevated creatinine of 1.6 I do not have her baseline available at this time. Echocardi ogram is being obtained. 09/13/2020 Patient is off oxygen clinically doing well wanted to go home. Although her etiology of her shortness of breath and nausea requirement is not clear all the workup is negative patient had an echocardiogram which showed some grade 2 diastolic dysfunction may be mild pulmonary edema may have contributed to her shortness of breath. The hyponatremia is a will be discontinued and patient was started on 40 mg of Lasix. Patient will need a BMP tested in about 34 days. Patient will be discharged today. There are no wall motion abnormalities on echocardiogram troponins were negative possibly of coronary artery disease is low. If cleared by cardiology patient will be discharged today. PHYSICAL EXAMINATION: GENERAL: The patient is alert and oriented x3, not in any acute distress. Well developed, well nourished. HEENT: Pupils are round and equally reacting to light. EOMI. No scleral icterus. No conjunctival pallor. Normocephalic, atraumatic. No pharyngeal erythema. No thyromegaly. CARDIOVASCULAR: S1 and S2 present. No murmurs, rubs, or gallops. PULMONARY: Chest is clear to auscultation, no wheezing or crackles. ABDOMEN: Soft, nontender, nondistended, normoactive bowel sounds. No palpable organomegaly. MUSCULOSKELETAL: No joint swelling or deformity. EXTREMITIES: No cyanosis, clubbing, or pedal edema. NEUROLOGICAL: Gross neurological examination did not reveal any focal deficits. SKIN: No rashes. Assessment and Plan Plan: -Shortness of breath etiology as per the interval history. Patient had a big had a hernia herniating into the thorax may have contributed to some of her shortness of breath considering her age.. -Possible chronic kidney disease stage III -Gastroesophageal reflux disease -Hypertension -Hyperlipidemia -History of coronary artery disease -Anxiety disorder. Objective - Vital Signs Vital signs: Vital Signs Temp 97.7 F 09/13/20 08:00 Pulse 64 09/13/20 08:00 Resp 20 09/13/20 08:00 BP 137/65 09/13/20 08:00 Pulse Ox 94 L 09/13/20 08:00 Intake & Output 09/12/20 09/13/20 09/13/20 18:59 06:59 18:59 Intake Total 480 Balance 480 Weight 107.1 kg Intake: Oral 480 Other: # Voids 3 2 - Labs CBC & Chem 7: 09/12/20 07:52 09/12/20 07:52
[2020-09-13 12:31] VITALS: BP 143/69; PULSE 59; TEMP 98
--- NOTE | 2020-09-13 14:08 | P.PN ---
Subjective This is a pleasant 80-year-old female past medical history significant for hypertension, aortic stenosis, dyslipidemia and congestive heart failure. She follows in the office with Dr. Sena. She has had no further symptoms of chest discomfort or shortness of breath. Blood pressure 143/69 heart rate 59 afebrile maintaining oxygen saturation on room air. Echocardiogram obtained reveals preserved LV systolic function with ejection fraction 55-60%, grade 2 diastolic dysfunction, severely dilated left atrium, mild aortic stenosis with a mean gradient of 15 mmHg, mild MR and mild TR. GENERAL: Well-appearing, well-nourished and in no acute distress. NECK: Supple without JVD or thyromegaly. LUNGS: Breath sounds clear to auscultation bilaterally. Respiration equal and unlabored. No wheezes, rales or rhonchi. HEART: Regular rate and rhythm with systolic ejection murmur at the base, no rubs or gallops. S1 and S2 heard. EXTREMITIES: Normal range of motion, no edema. No clubbing or cyanosis. Peripheral pulses intact. ASSESSMENT Chest pain Chronic diastolic heart failure, clinically euvolemic Aortic stenosis, mild Hypertension Dyslipidemia Acute kidney injury PLAN Stable from a cardiac perspective. Follow-up with Dr. Sena upon discharge. Nurse Practitioner note has been reviewed, I agree with a documented findings and plan of care. Patient was seen and examined. Objective - Vital Signs Vital signs: Vital Signs Temp 98 F 09/13/20 12:00 Pulse 59 L 09/13/20 12:00 Resp 20 09/13/20 12:00 BP 143/69 09/13/20 12:00 Pulse Ox 94 L 09/13/20 12:00 Intake & Output 09/12/20 09/13/20 09/13/20 18:59 06:59 18:59 Intake Total 480 240 Balance 480 240 Weight 107.1 kg Intake: Oral 480 240 Other: # Voids 3 2 - Labs CBC & Chem 7: 09/12/20 07:52 09/12/20 07:52
--- NOTE | 2020-09-16 11:39 | P.DS ---
Providers Date of admission: 09/11/20 20:17 Expected date of discharge: 09/13/20 Attending physician: Joyce Martin Consults: 09/11/20 20:16 Consult Physician Urgent Consulting Provider: Himanshu Sena Consult Reason/Comments: nstemi Do you want consulting provider notified?: Yes Primary care physician: Physician Nonstaff Hospital Course: Referred to the progress note from the same day for further details of discharge. Patient Condition at Discharge: Fair Plan - Discharge Summary Discharge Rx Participant: No New Discharge Prescriptions: New Potassium Chloride ER [K-Dur 10] 10 meq PO DAILY #30 tab Furosemide [Lasix] 40 mg PO DAILY #30 tablet Continue Lovastatin [Mevacor] 20 mg PO HS amLODIPine [Norvasc] 5 mg PO QAM Montelukast [Singulair] 10 mg PO HS Esomeprazole Magnesium [NexIUM] 20 mg PO DAILY allopurinoL [Zyloprim] 100 mg PO DAILY ALPRAZolam [Xanax] 0.5 mg PO BID Acetaminophen [Tylenol Arthritis] 650 mg PO Q4H PRN PRN Reason: Pain Escitalopram Oxalate [Lexapro] 20 mg PO DAILY Albuterol Sulfate [Ventolin HFA] 2 puff INHALATION RT-Q6H PRN PRN Reason: Shortness Of Breath traMADol HCL 50 mg PO BID PRN PRN Reason: Pain Losartan Potassium [Cozaar] 50 mg PO DAILY Discontinued hydroCHLOROthiazide 25 mg PO QAM Discharge Medication List ALPRAZolam [Xanax] 0.5 mg PO BID 03/22/18 [History] Acetaminophen [Tylenol Arthritis] 650 mg PO Q4H PRN 03/22/18 [History] Esomeprazole Magnesium [NexIUM] 20 mg PO DAILY 03/22/18 [History] Lovastatin [Mevacor] 20 mg PO HS 03/22/18 [History] Montelukast [Singulair] 10 mg PO HS 03/22/18 [History] allopurinoL [Zyloprim] 100 mg PO DAILY 03/22/18 [History] amLODIPine [Norvasc] 5 mg PO QAM 03/22/18 [History] Escitalopram Oxalate [Lexapro] 20 mg PO DAILY 07/21/20 [History] Albuterol Sulfate [Ventolin HFA] 2 puff INHALATION RT-Q6H PRN 09/11/20 [History] Losartan Potassium [Cozaar] 50 mg PO DAILY 09/11/20 [History] traMADol HCL 50 mg PO BID PRN 09/11/20 [History] Furosemide [Lasix] 40 mg PO DAILY #30 tablet 09/13/20 [Rx] Potassium Chloride ER [K-Dur 10] 10 meq PO DAILY #30 tab 09/13/20 [Rx] Follow up Appointment(s)/Referral(s): Nonstaff,Physician [Primary Care Provider] - 3 Days (please call office when open to make follow up appointment) Himanshu Sena MD [STAFF PHYSICIAN] - 2 Weeks Ambulatory/Diagnostic Orders: Basic Metabolic Panel [LAB.AMB] Time Frame: 3 Days, Location: None Selected Discharge Disposition: HOME SELF-CARE
== END 2020-09-13 14:11 | disposition home or self-care (01) ==
LOC: EC 18:29 → 3SCARD 20:17
PROVIDERS: ADMIT Hospitalist; ATTEND Hospitalist
DX: R07.9 Chest pain, unspecified (principal); R06.02 Shortness of breath; R77.8 Other specified abnormalities of plasma proteins; I11.0 Hypertensive heart disease with heart failure; I50.32 Chronic diastolic (congestive) heart failure; N17.9 Acute kidney failure, unspecified; I35.0 Nonrheumatic aortic (valve) stenosis; K44.9 Diaphragmatic hernia without obstruction or gangrene; I25.10 Atherosclerotic heart disease of native coronary artery without angina pectoris; E87.1 Hypo-osmolality and hyponatremia; M79.7 Fibromyalgia; K21.9 Gastro-esophageal reflux disease without esophagitis; E78.5 Hyperlipidemia, unspecified; I25.2 Old myocardial infarction; M19.90 Unspecified osteoarthritis, unspecified site; Z87.891 Personal history of nicotine dependence; Z90.49 Acquired absence of other specified parts of digestive tract; Z90.710 Acquired absence of both cervix and uterus; Z90.89 Acquired absence of other organs; Z98.42 Cataract extraction status, left eye; Z98.41 Cataract extraction status, right eye; F41.9 Anxiety disorder, unspecified; Z80.3 Family history of malignant neoplasm of breast; Z80.0 Family history of malignant neoplasm of digestive organs; Z79.899 Other long term (current) drug therapy; Z79.891 Long term (current) use of opiate analgesic; Z88.6 Allergy status to analgesic agent; Z88.2 Allergy status to sulfonamides
CPT/HCPCS: 96366 ×2; 93005 ×2; 96365; 99285; 36415; 94640 ×2; 93306; 83880; 80061; 80048; 84484 ×2; 85025; 85730; 71045; G0378 ×3; J1644

== ENCOUNTER 2024-09-04 09:49 | Day surgery (SDC) | payer MEDICARE ==
[~2024-09-04 09:49] MED LIST changes: -DEXAMETHASONE SOD PHOSPHATE 10 MG/ML 1 ML VIAL IV ONE; -HEPARIN SODIUM,PORCINE 5,000 UNIT/ML 1 ML VIAL SQ ONE; -HYDROmorphone 0.5 MG/0.5 ML SYRINGE IVP PRN; +LIDOCAINE 1% (10MG/ML) FOR IV START INTRADERMA PRN; -LIDOCAINE 1% 20 ML VIAL (10MG/ML) FOR IV START INTRADERMA PRN; -MIDAZOLAM 2 MG/2 ML VIAL IV PRN; -SCOPOLAMINE 1.5MG/72HR PATCH TRANSDERM ONE; -ceFAZolin IN SWFI 2 GM/20 ML SYRINGE IVP ONE
[2024-09-04 11:13] VITALS: TEMP 97
[2024-09-04] MEDS: NA PHOS,M-B/NA PHOS,DI-BA 133 ML ENEMA RECTAL STA (11:29)
[2024-09-04] MEDS: IV FLUID CONTINUATION 1,000 ML IV ONE (11:44)
[2024-09-04] MEDS: ONDANSETRON 4 MG/2 ML VIAL IVP STA (11:54)
[2024-09-04] MEDS ORDERED: PROPOFOL 10 MG/ML 20 ML VIAL IV ONE (12:01)
--- NOTE | 2024-09-04 12:29 | P.PCN ---
Date of Procedure: 09/04/24 Procedure(s) Performed: PREOPERATIVE DIAGNOSIS: Rectal bleeding, perianal mass POSTOPERATIVE DIAGNOSIS: Same PROCEDURE: Flexible sigmoidoscopy with biopsy perianal ulcer and mass ANESTHESIA: MAC SURGEON: Lon Tucker M.D. SPECIMENS: Perianal ulcer and mass ENDOSCOPIC PROCEDURE: The patient was placed on the endoscopy table in the left decubitus position. The Olympus colonoscope was inserted into the anus and passed under direct visualization to the proximal rectum. The patient had retained solid stool in the rectum making visualization of the mucosal surfaces challenging. No obvious abnormalities however were noted. In the perianal region in the right anterior location was a superficial ulceration measuring about 1 x 1.5 cm. The areas to be biopsied were localized with 1% lidocaine with epinephrine. The anterior edge of the ulcer base was excised. The piece of tissue removed was approximately 4 x 7 mm. In the right lateral location was a masslike piece of tissue that may have represented a chronically inflamed hemorrhoid. This appeared like granulation tissue in appearance. An 8 x 5 mm piece of tissue was removed. In the anterior location another masslike area was again noted and a 8 x 5 mm biopsy of this took place as well. Biopsies were taken using the scalpel. Pressure was held. No further significant bleeding was noted. Sterile dressings applied. Base of the cecum. The appendiceal orifice was visualized. From that point the scope was slowly withdrawn inspect ing all surfaces carefully. There were no neoplastic inflammatory or polypoid lesions throughout the cecum, ascending, transverse, descending, sigmoid and rectum. The patient was taken to the recovery room in stable condition per anesthesia guidelines. RECOMMENDATIONS: Await biopsy results. Further recommendations to follow.
[2024-09-04 12:46] VITALS: BP 141/75; PULSE 66; RESP 14
== END 2024-09-04 13:12 | disposition home or self-care (01) ==
LOC: ORWHC2ENDO 09:49
PROVIDERS: ATTEND Surgery
DX: K62.6 Ulcer of anus and rectum (principal); K21.9 Gastro-esophageal reflux disease without esophagitis; I10 Essential (primary) hypertension; E78.5 Hyperlipidemia, unspecified; I25.10 Atherosclerotic heart disease of native coronary artery without angina pectoris; M79.7 Fibromyalgia; F41.9 Anxiety disorder, unspecified; Z86.79 Personal history of other diseases of the circulatory system; Z88.2 Allergy status to sulfonamides; Z88.6 Allergy status to analgesic agent; Z79.899 Other long term (current) drug therapy
CPT/HCPCS: 88305; 45331; J2405; J2704; 45330

== ENCOUNTER → 2024-09-20 | Outpatient (CLI) | payer MEDICARE ==
--- NOTE | 2024-09-21 17:05 | PE ---
EXAMINATION TYPE: PET CT fusion skull to thigh DATE OF EXAM: 09/20/2024 CLINICAL INDICATION:Female, 84 years old with history of C21.1 ANAL CANCER; TECHNIQUE: Following the intravenous administration of 10.48 mCi of F-18 FDG, whole body images are performed from the skull base to the midthigh. Images are reviewed on the computer in the coronal, axial, and sagittal planes. Reconstructed rotating images are created on independent workstation and reviewed on the computer. A non-contrast CT is performed in conjunction with the PET scan. Glucose level 106 mg/dL CT DLP: 897.03 mGycm, Automated exposure control for dose reduction was used. COMPARISON: CT None, PET/CT None, MRI: None FINDINGS: Mediastinal SUV mean is 2.8. Hepatic parenchyma SUV mean is 3.9. SKULL BASE AND NECK: There is a 3.5 cm hypodense lesion in the region of the right thyroid lobe with mild heterogenous rad iotracer activity with a maximum SUV of 3.9. CHEST, MEDIASTINUM, AND HILAR REGION: No suspicious radiotracer activity. ABDOMEN AND PELVIS: There is a region of focal radiotracer uptake within the anus and gluteal crease measuring up to 4.4 x 2.0 cm with a max SUV of 18.1. Focal region radiotracer uptake identified within the rectum with a maximum SUV of 10.1. There is a 5.3 cm bulky region of the left kidney with heterogenous radiotracer uptake with a maximum SUV of 9.7. No definitive FDG avid lymphadenopathy. MUSCULOSKELETAL STRUCTURES: No suspicious radiotracer activity. OTHER CT: Bilateral aphakia. Bilateral carotid bulb calcifications. Atherosclerotic calcification of the aorta and its branches. Cardiomegaly. Dense mitral annulus calcifications. Aortic valvular calcif ications. Mild to moderate coronary arterial calcifications. Large hiatal hernia with approximately 5 0% the stomach intrathoracic. Multiple bilateral renal cysts with largest within the left kidney tulio uring up to 9.5 cm. Largest within the right kidney measures up to 8.7 cm. Distal colonic diverticulo sis without evidence for acute diverticulitis. Broad base periumbilical fat filled hernia. Post hyste rectomy changes. Bibasilar subsegmental atelectasis. Postsurgical changes with anastomosis at the rec tosigmoid region. IMPRESSION: 1. Focal region of radiotracer uptake within the anus and gluteal crease likely representing reporte d anal malignancy. 2. Focal region of radiotracer uptake within the rectum which may be physiologic versus additional m alignancy. Consider direct visualization if not recently performed. 3. Bulky round region within the left kidney with heterogenous radiotracer uptake which may represen t physiologic renal uptake however underlying renal mass is not excluded. Correlate with prior imagin g otherwise consider further evaluation with ultrasound. 4. There is a 3.5 cm heterogenous lesion within the region of the right thyroid lobe with mild radio tracer uptake. Metastasis is not excluded. Further evaluation with thyroid ultrasound is recommended. [facility], , 09/21/2024 5:03 PM
== END | disposition home or self-care (01) ==
LOC: RADPETMAIN 09:13
PROVIDERS: ATTEND Internal Medicine Hematology & Oncology
DX: C21.1 Malignant neoplasm of anal canal (principal); K57.30 Diverticulosis of large intestine without perforation or abscess without bleeding; J98.11 Atelectasis; N28.1 Cyst of kidney, acquired; I51.7 Cardiomegaly; H27.03 Aphakia, bilateral
CPT/HCPCS: 78815; A9552